=== PATIENT | female | born 1965 | race Caucasian/White ===

== ENCOUNTER → 2021-06-24 | Outpatient (CLI) | payer OTHER ==
[~2021-06-24] MED LIST: ATEN50 PO; CYCL10 PO; DULO30 PO; LOSHYD PO; OLAN5 PO; TRAM50 PO
[2021-06-24 16:15] LABS: BASOPHILS ABSOLUTE AUTO 0.09 K/mm3 (0.00-0.23); BASOPHILS PERCENT AUTO 1 % (0-2); EOSINOPHILS ABSOLUTE AUTO 0.46 K/mm3 (0.00-0.68); EOSINOPHILS PERCENT AUTO 5 % (0-6); Hemoglobin 14.4 g/dL (11.5-16.0); IMMATURE GRAN ABSOLUTE AUTO 0.06 K/mm3 (0.00-0.10); IMMATURE GRAN PERCENT AUTO 1 % (0-1); LYMPHOCYTES ABSOLUTE AUTO 3.36 K/mm3 (0.84-5.20); LYMPHOCYTES PERCENT AUTO 34 % (21-46); MONOCYTES ABSOLUTE AUTO 0.82 K/mm3 (0.16-1.47); MONOCYTES PERCENT AUTO 8 % (4-13); Mean Corpuscular HGB 30.5 pg (26.0-34.0); Mean Corpuscular HGB Conc 33.5 g/dL (31.5-36.5); Mean Corpuscular Volume 91 fL (80-100); Mean Platelet Volume 9.4 fL (9.1-12.4); NEUTROPHILS ABSOLUTE AUTO 4.98 K/mm3 (1.96-9.15); NEUTROPHILS PERCENT AUTO 51 % (41-73); Platelet Count 313 K/mm3 (150-400); RDW Coefficient Variation 12.8 % (11.7-14.2); RDW Standard Deviation 42.4 fL (35.1-46.3); Red Blood Cell Count 4.72 M/mm3 (3.80-5.20); White Blood Cell Count 9.77 K/mm3 (4.00-11.30)
[2021-06-24 16:33] LABS: Alanine Aminotransfer (ALT/SGP 41 U/L (12-78); Albumin, Blood 3.7 g/dL (3.4-5.0); Albumin/Globulin Ratio 0.9 (0.8-1.8); Alk Phos 101 U/L (40-126); Anion Gap 11 mmol/L (6-16); Aspartate Aminotrans (AST/SGOT 31 U/L (12-37); Bilirubin, Total 0.3 mg/dL (0.1-1.0); Blood Urea Nitrogen 18 mg/dL (8-24); Bun/Creatinine Ratio 29.5 (12.0-20.0); CO2, Blood 28 mmol/L (21-32); Calcium, Blood 9.7 mg/dL (8.5-10.1); Chloride, Blood 101 mmol/L (98-108); Creatinine, Blood 0.61 mg/dL (0.40-1.00); Glomerular Filtration Rate >60 (60-); Glucose, Blood 126 mg/dL (70-99); Potassium, Blood 4.6 mmol/L (3.5-5.5); Sodium, Blood 140 mmol/L (136-145); Total Protein, Blood 7.7 g/dL (6.4-8.2)
== END | disposition home or self-care (01) ==
LOC: LAB SHORT 16:07
PROVIDERS: General Practice
DX: E11.9 Type 2 diabetes mellitus without complications (principal); R10.2 Pelvic and perineal pain
CPT/HCPCS: 80053; 83036; 85025; 87086

== ENCOUNTER → 2022-04-04 | Outpatient (CLI) | payer OTHER ==
[2022-04-06 15:10] LABS: HPV 16 Negative (Negative); HPV 18 Negative (Negative); HPV OTHER HR TYPES Negative (Negative)
== END ==
LOC: LAB SHORT 15:34 → LAB 15:34
PROVIDERS: Obstetrics & Gynecology
DX: Z01.419 Encounter for gynecological examination (general) (routine) without abnormal findings (principal)
CPT/HCPCS: 87624; G0123

== ENCOUNTER → 2022-09-21 | Outpatient (CLI) | payer OTHER ==
[~2022-09-21] MED LIST changes: +ACET500 PO; +ATOR20 PO; +Actos30 MG PO; +Ativan1 MG PO; +BASAGLAR K100 UNIT/1 SC; +CODACE30 PO; +EUTHYROX112 MC1 PO; +GABA300 PO; +Glucagon Emergen1 MG INJ; +IBUP800 PO; +LISI20 PO; +METFORMIN HCL500 MG PO; +NOVOLOG FL100 UNIT/3 SC; +OMEGA-3 FISH O1 EAC6 PO; +ONDA4ODT SL; +OXYC5 PO; +PROP80ER PO; +SERT100 PO
[2022-09-21 16:42] LABS: Microalb/Creat Ratio UR, Rand 86.76 mg/g (0.000-30.000)
== END | disposition home or self-care (01) ==
LOC: LAB SHORT 09:50 → LAB 09:50
PROVIDERS: Family Medicine
DX: E11.65 Type 2 diabetes mellitus with hyperglycemia (principal)
CPT/HCPCS: 82043; 82570

== ENCOUNTER → 2023-07-19 | Outpatient (CLI) | payer OTHER | LOC: LAB SHORT 17:00 → LAB 17:00 → LAB SHORT 07-20 18:06 | DX: N17.9 Acute kidney failure, unspecified (principal) | CPT/HCPCS: 87086 ==

== ENCOUNTER 2025-06-26 10:40 | Day surgery (SDC) | payer OTHER ==
[~2025-06-26] VITALS: Ht 160 cm; Wt 105.7 kg
[2025-06-26] MEDS ORDERED: PREG100 PO (11:03)
[2025-06-26 13:36] VITALS: BP 115/67
--- NOTE | 2025-06-26 13:39 | NUR ---
06/26/25 [id number] Daija Harding S 6162 PT. PHONE GOING OFF PT. VERBALIZES "IT'S TELLING HER THAT HER BLOOD SUGAR IS LOW. PT. LOOKED ON PHONE & IT WAS 69. PT. DENIES ANY SYMPTOMS. PT. DRINKING APPLE JUICE. ANESTHESIA NOTIFIED. NO ORDERS GIVEN. PT. ALSO VERBALIZED "FEELING A LITTLE BIT TIGHT, NOT MUCH." SAT PT. UP & PT. VERBALIZED FEELING BETTER.
== END 2025-06-26 13:32 | disposition home or self-care (01) ==
LOC: ORSCSDS 10:40
DX: Z12.11 Encounter for screening for malignant neoplasm of colon (principal); R19.5 Other fecal abnormalities; D12.2 Benign neoplasm of ascending colon; D12.4 Benign neoplasm of descending colon; K52.9 Noninfective gastroenteritis and colitis, unspecified; E11.22 Type 2 diabetes mellitus with diabetic chronic kidney disease; I12.9 Hypertensive chronic kidney disease with stage 1 through stage 4 chronic kidney disease, or unspecified chronic kidney disease; N18.9 Chronic kidney disease, unspecified; Z79.4 Long term (current) use of insulin; Z79.899 Other long term (current) drug therapy; E66.01 Morbid (severe) obesity due to excess calories; Z68.41 Body mass index [BMI] 40.0-44.9, adult; G47.33 Obstructive sleep apnea (adult) (pediatric); Z87.891 Personal history of nicotine dependence
CPT/HCPCS: 82947; 88305; J2704; J7120